=== PATIENT | female | born 1990 | race Caucasian/White ===

== ENCOUNTER 2017-08-05 21:29 | Emergency (ER) | payer MEDICAID ==
[~2017-08-05] VITALS: Ht 154.9 cm; Wt 67.1 kg
[~2017-08-05 21:29] MED LIST: COLACE100 MG PO; NORCO1 TA2 PO
[2017-08-05 22:17] VITALS: Ht 154.9 cm; Wt 67.1 kg
[2017-08-06 00:43] LABS: BASOPHIL % 0.3 % (0-2); PLATELET COUNT 347 x10^3mcL (130-400); RED CELL DISTRIBUTION WIDTH 14.1 % (11.5-14.5)
[2017-08-06 00:44] LABS: CALCIUM 8.6 mg/dL (8.5-10.1); CARBON DIOXIDE 25.4 mmol/L (21-32); CHLORIDE SERUM 103 mmol/L (98-107); CREATININE SERUM 0.6 mg/dL (0.6-1.0); GFR1 > 60 mL/min; GLUCOSE SERUM 98 mg/dL (74-106); POTASSIUM SERUM 4.1 mmol/L (3.5-5.1); SODIUM SERUM 140 mmol/L (136-145)
[2017-08-06 00:50] LABS: ALBUMIN 3.8 g/dL (3.4-5.0); ALKALINE PHOSPHATASE 66 U/L (46-116); ALT/SGPT 45 U/L (14-59); AST/SGOT 36 U/L (15-37); BILIRUBIN TOTAL 0.3 mg/dL (0.20-1.00); LIPASE 96 IU/L (73-393); TOTAL PROTEIN, SERUM 7.6 g/dL (6.4-8.2)
[2017-08-06 05:28] VITALS: BP 114/62
== END 2017-08-06 05:28 | disposition home or self-care (01) ==
LOC: ED 21:29
PROVIDERS: Emergency Medicine
DX: R10.13 Epigastric pain (principal); R11.0 Nausea; M25.511 Pain in right shoulder
CPT/HCPCS: J1170; J2405; J7030; Q0092

== ENCOUNTER 2018-05-21 01:29 | Emergency (ER) | payer SELFPAY ==
[~2018-05-21] VITALS: Ht 154.9 cm; Wt 62.4 kg
[2018-05-21 02:15] LABS: PLATELET COUNT 380 x10^3mcL (130-400)
[2018-05-21 02:19] LABS: CALCIUM 8.6 mg/dL (8.5-10.1); CARBON DIOXIDE 27.8 mmol/L (21-32); CHLORIDE SERUM 103 mmol/L (98-107); CREATININE SERUM 0.7 mg/dL (0.6-1.0); GFR1 > 60 mL/min; GLUCOSE SERUM 105 mg/dL (74-106); POTASSIUM SERUM 3.7 mmol/L (3.5-5.1); SODIUM SERUM 138 mmol/L (136-145)
[2018-05-21 02:23] LABS: ALKALINE PHOSPHATASE 79 U/L (46-116); ALT/SGPT 45 U/L (14-59); AST/SGOT 11 U/L (15-37); LIPASE 120 IU/L (73-393); TOTAL PROTEIN, SERUM 8.2 g/dL (6.4-8.2)
[2018-05-21 02:27] LABS: RED CELL DISTRIBUTION WIDTH 14.6 % (11.5-14.5)
[2018-05-21 03:27] VITALS: BP 132/72
== END 2018-05-21 03:27 | disposition home or self-care (01) ==
LOC: ED 01:29
PROVIDERS: Emergency Medicine
DX: K29.70 Gastritis, unspecified, without bleeding (principal); Z90.49 Acquired absence of other specified parts of digestive tract
CPT/HCPCS: J1885; J2405; J7030

== ENCOUNTER 2019-01-22 19:17 | Emergency (ER) | payer MEDICAID ==
[~2019-01-22] VITALS: Ht 154.9 cm; Wt 61.2 kg
[2019-01-22 19:33] VITALS: Ht 154.9 cm; Wt 61.2 kg
[2019-01-22 22:00] VITALS: BP 117/71
== END 2019-01-22 22:00 | disposition home or self-care (01) ==
LOC: ED 19:17
DX: R51 Headache (principal)
CPT/HCPCS: Q0162

== ENCOUNTER 2020-04-25 23:25 | Emergency (ER) | payer SELFPAY ==
[~2020-04-25] VITALS: Ht 154.9 cm; Wt 62.6 kg
[2020-04-25 23:28] VITALS: Ht 154.9 cm; Wt 62.6 kg
[2020-04-26 01:12] VITALS: BP 110/55
== END 2020-04-26 01:13 | disposition home or self-care (01) ==
LOC: ED 23:25
DX: G44.209 Tension-type headache, unspecified, not intractable (principal); K21.9 Gastro-esophageal reflux disease without esophagitis
CPT/HCPCS: J1885; J2765; J7030